=== PATIENT | female | born 1950 | race Caucasian/White ===

== ENCOUNTER 2022-08-23 06:50 | Day surgery (SDC) | payer OTHER ==
[2022-08-23] VITALS (235 sets, daily range): BP systolic 78–145; BP diastolic 40–85
[~2022-08-23] VITALS: Ht 162.6 cm; Wt 57.0 kg
[2022-08-23 07:38] LABS: BASO% 0.4 % (0-3); EOS% 3.9 % (0-8); HEMATOCRIT 40.1 % (37.0-47.0); HEMOGLOBIN 12.8 g/dl (12.0-16.0); LYMPH% 26.3 % (15-41); MEAN CELL VOLUME 92.8 fL CALC (80.0-100.0); MEAN CORPUSCULAR HGB 29.6 pG CALC (26.0-32.0); MEAN CORPUSCULAR HGB CONC 31.9 g/dL CAL (32.0-36.0); MONO% 6.3 % (2-13); NEUT# 2.93 thou/uL (2.00-7.15); NEUT% 63.1 % (42-76); RED BLOOD COUNT 4.32 mill/uL (4.20-5.60); RED CELL DISTRI WIDTH 13.4 % (11.5-15.5)
[2022-08-23 07:54] LABS: ALBUMIN 4.4 g/dL (3.2-5.0); ALKALINE PHOSPHATASE 87 u/l (38-126); ANION GAP 13 (6-22 (CALC)); BILIRUBIN, TOTAL 0.4 mg/dL (0.02-1.3); BUN 17 mg/dL (8-23); BUN/CREATININE RATIO 19 (12-20 (CALC)); CARBON DIOXIDE 26 mmol/l (22-30); CHLORIDE 102 mmol/l (95-108); CREATININE 0.9 mg/dL (0.5-1.0); GFR FOR AFR.AMER. > 60 ML/MIN (>=60 (CALC)); GFR OTHER RACES > 60 ML/MIN (>=60 (CALC)); POTASSIUM 3.7 mmol/l (3.5-5.1); SGOT/AST 31 u/l (9-36); SODIUM 138 mmol/l (137-146); TOTAL PROTEIN 6.9 g/dL (6.3-8.2)
[2022-08-23] MEDS ORDERED: WELLBUTRIN XL300 MG PO (08:03)
[2022-08-23] MEDS ORDERED: AMBIEN10 MG PO (08:04)
[2022-08-23] MEDS ORDERED: CYMBALTA60 MG PO (08:04)
[2022-08-23] MEDS ORDERED: ARICEPT10 MG PO (08:05)
[2022-08-23] MEDS ORDERED: NALTREXONE50 MG PO (14:01)
[2022-08-23] MEDS ORDERED: KLONOPIN2 MG PO (14:02)
[2022-08-23] MEDS ORDERED: CLONIDINE0.1 MG PO (14:02)
[2022-08-24 03:57] VITALS: BP 105/60
[2022-08-24 04:00] VITALS: BP 105/60
[2022-08-24 05:16] LABS: BASO% 0.2 % (0-3); HEMATOCRIT 34.6 % (37.0-47.0); HEMOGLOBIN 11.3 g/dl (12.0-16.0); LYMPH% 10.1 % (15-41); MEAN CELL VOLUME 90.6 fL CALC (80.0-100.0); MEAN CORPUSCULAR HGB 29.6 pG CALC (26.0-32.0); MEAN CORPUSCULAR HGB CONC 32.7 g/dL CAL (32.0-36.0); MONO% 3.1 % (2-13); NEUT# 5.25 thou/uL (2.00-7.15); NEUT% 86.6 % (42-76); RED BLOOD COUNT 3.82 mill/uL (4.20-5.60); RED CELL DISTRI WIDTH 13.7 % (11.5-15.5)
[2022-08-24 05:28] LABS: ALBUMIN 3.7 g/dL (3.2-5.0); ALKALINE PHOSPHATASE 74 u/l (38-126); BUN 11 mg/dL (8-23); BUN/CREATININE RATIO 14 (12-20 (CALC)); CARBON DIOXIDE 24 mmol/l (22-30); CHLORIDE 102 mmol/l (95-108); CREATININE 0.8 mg/dL (0.5-1.0); GFR FOR AFR.AMER. > 60 ML/MIN (>=60 (CALC)); GFR OTHER RACES > 60 ML/MIN (>=60 (CALC)); MAGNESIUM 2.4 mg/dL (1.6-2.3); SGOT/AST 28 u/l (9-36); SODIUM 134 mmol/l (137-146)
[2022-08-24 05:33] LABS: ANION GAP 13 (6-22 (CALC)); BILIRUBIN, TOTAL 0.7 mg/dL (0.02-1.3); POTASSIUM 4.5 mmol/l (3.5-5.1)
[2022-08-24 07:50] VITALS: BP 111/63
[2022-08-24 11:23] VITALS: BP 116/51
== END 2022-08-24 15:55 | disposition home or self-care (01) | DRG 897 ==
LOC: ANR 06:50 → MS2 07:27 → ANR 07:27 → MS2 07:30 → ANR 09:00 → MS2 18:29 → ANR 08-24 15:55
PROVIDERS: ATTEND Anesthesiology
DX: F11.20 Opioid dependence, uncomplicated (principal)
CPT/HCPCS: J0131; J2060; J2354; J3475